=== PATIENT | female | born 1995 | race Caucasian/White ===

== ENCOUNTER 2022-04-17 00:14 | Outpatient (CLI) | payer BC, SELFPAY ==
[2022-04-17 00:29] VITALS: PULSE 107; O2SAT 98
[2022-04-17 00:33] VITALS: BP 114/70; PULSE 95
[2022-04-17 00:34] VITALS: RESP 16; TEMP 36.9
--- NOTE | 2022-04-17 06:44 | PC.OBNST ---
NST Note NST Note Start: 04/17/22 00:30 Freq: ONCE Status: Active Protocol: Document 04/17/22 06:40 AVL (Rec: 04/17/22 06:42 AVL [id number]) NST Note 1 Para (# of births) 0 EDC 05/16/22 Gestational Age In Weeks & Days 35 Weeks & 6 Days Patient Presented with Complaint(s) of Decreased movement Other Complaints While on the unit patient had an increase in contractions Reactive Yes Appropriate for Gestational Age Yes YAMILE Varner RN Date 04/17/22 Reactive Yes Appropriate for Gestational Age Yes YAMILE Brown RNC Date 04/17/22 OB NST charge Yes Complete NST Note via Write Note Yes The provider's electronic signature indicates the NST is reactive/appropriate for gestational age. *Note to provider: If an addendum is required, open the patient's chart and click on the note under the Nurse/Allied Health tab.
== END 2022-04-17 03:29 | disposition home or self-care (01) ==
LOC: OB OUT 00:15 → OB 00:16
PROVIDERS: PCP Family Medicine; Visit Provider Family Medicine
DX: O36.8130 Decreased fetal movements, third trimester, not applicable or unspecified (principal); Z3A.35 35 weeks gestation of pregnancy
CPT/HCPCS: 59025; 99213

== ENCOUNTER 2022-05-15 01:26 | Inpatient (IN) | payer BC, SELFPAY ==
[2022-05-15] VITALS (141 sets, daily range): BP systolic 89–143; BP diastolic 52–77; PULSE 66–172; RESP 18; TEMP 36.3–37.1; O2SAT 94–100
[2022-05-15 02:52] LABS: SARS PCR* Negative SARS-CoV-2 (Negative)
[2022-05-15] MEDS: SODIUM CHLORIDE 0.9 % (FLUSH) 10 ML SYRINGE IVF (04:07)
[2022-05-15] MEDS: LACTATED RINGERS 1000 ML 1,000 ML 1200 ML IV ×2 (04:07→05:22)
[2022-05-15] MEDS: LIDOCAINE 2% (PF) 5 ML VIAL EPIDURAL (04:16)
[2022-05-15] MEDS: ROPIVACAINE 0.2% 100 ml 100 ML 12 MG EPIDURAL ×2 (04:35→12:00)
[2022-05-15] MEDS: fentaNYL 250 MCG/5 ML inj 100 MCG EPIDURAL (04:40)
--- NOTE | 2022-05-15 04:50 | PM.ANBPRC ---
PFSH PFSH Social History Smoking Status: Never smoker Meds Home Medications and Allergies Allergies Allergy/AdvReac Type Severity Reaction Status Date / Time No Known Drug Allergies Allergy Verified 05/15/22 01:54 Results Labs Labs: Laboratory Results - last 24 hr 05/15/22 02:08 SARS-CoV-2 (PCR) Negative SARS-CoV-2 Vital Signs Vital Signs: Last Vital Signs Pulse 86 05/15/22 04:48 BP 122/61 05/15/22 04:48 Pulse Ox 98 05/15/22 04:47 Anesthesia Procedures Epidural Insertion Patient Location: OB Start Time: 04:00 Stop Time: 05:00 Start Date: 05/15/22 Stop Date: 05/15/22 Reason for Block: primary anesthetic Patient Position: sitting Performed By: Gareth Cook Preanesthetic Checklist: IV checked, risks and benefits discussed, surgical consent, monitors and equipment checked, pre-op evaluation, timeout performed and anesthesia consent Prep: chlorhexidine gluconate Monitoring: blood pressure monitoring, groundwater monitoring technician, continuous pulse oximetry and heart rate Approach: midline Vertebral Space: lumbar (1-5) Needle Type: Tuohy needle Injection Technique: continuous catheter Needle gauge: 17 Needle Length (cm): 10 cm Needle Insertion Depth (cm): 6 Catheter Gauge: 19 Catheter Type: multi-orifice Catheter at skin depth (cm): 12 Test Dose Result: negative and lidocaine 1.5% with epinephrine 1 to 200,000 Events: other
[2022-05-15] MEDS: PHENYLEPHRINE 100 MCG/ML SYRINGE IVP ×5 (05:19→06:52)
[2022-05-15] MEDS: ePHEDrine sulfate 5 MG/ML inj 10 MG IVP ×2 (06:04→06:13)
[2022-05-15] MEDS: LACTATED RINGERS 1000 ML 1,000 ML 125 ML IV (07:33)
--- NOTE | 2022-05-15 08:14 | P.OBHP_ITS ---
OB - H&P: HPI Labor/Induction History of Present Illness Date Seen: 05/15/22 Chief Complaint: Leaking fluid Chief complaint: Maternity Narrative: Ashlee is a 26 year old 1 para 0 at 39 weeks, 6 days gestation by LMP and 1st trimester ultrasound, who presents with spontaneous gush of clear fluid starting at 0030 today. She was having some contractions beforehand but these became much more pronounced and frequent about an hour after her water broke. She has been feeling normal movement. No bleeding. No recent illness. History of Present Dating criteria: based on LMP care: good care Ultrasounds: normal 1st trimester US and normal mid trimester US Medical complications: none Labs Blood type: O (+) positive Rubella: nonimmune RPR/VDLR: nonreactive GBS status: negative HBsAG: negative Review of Systems Status of ROS: Reports: 6 or more systems reviewed and unremarkable except as noted in History and below Meds Home Medications and Allergies Allergies Allergy/AdvReac Type Severity Reaction Status Date / Time No Known Drug Allergies Allergy Verified 05/15/22 01:54 OB - H&P: Exam Physical Exam: Vital signs: Temp Pulse BP Pulse Ox 97.8 F 89 111/57 L 100 05/15/22 05:43 05/15/22 08:10 05/15/22 08:10 05/15/22 08:03 Constitutional: Constitutional: no acute distress Routine HEENT Exam: Eye: Present normal appearance ENT: Present mucous membranes moist Routine Respiratory Exam: Respiratory: Present CTA bilaterally Routine Cardiovascular Exam: Cardiovascular: RRR, S1 and S2 Detailed Labor and Delivery Exam: Patient Gravid: yes Dilation (cm): 3 Effacement (%): 80 (per RN) Contraction frequency (min): 3 Tachysystole: No Comments: Exam per RN. FHT is category 1. Fetus (Single): Amniotic Membrane Status: SROM Amniotic Membrane Fluid Description: Clear Heart Rate Baseline: 150 Monitor Accelerations: Present Monitor Decelerations: None Longterm Variability: Moderate (6-25) Routine Extremities Exam: Extremities: Absent calf tenderness or pedal edema Routine Neurological Exam: Present alert and oriented X3 OB - Problem Based A/P Additional Plan (1) SROM (spontaneous rupture of membranes): Status: Acute Plan She did get phenylephrine and ephedrine after her epidural for hypotension. There was some tachycardia after this but heart tracing continued to be reassuring. She has now been ruptured for over 8 hours. She has made minimal change from admission. She is now 3 when she was 275 on admission. We discussed options include watchful waiting but we discussed increased risk of ROM > 18 hours with that plan as she has had minimal change so far. We elected to proceed with oral cytotec for cervical ripening per protocol.
[2022-05-15] MEDS: miSOPROStoL 25 MCG/0.25 TABLET PO (09:16)
[2022-05-15] MEDS: OXYTOCIN 30 unit/500 ML in NS 30 UNIT/500 ML BAG 300 UNIT IVPB (15:00)
--- NOTE | 2022-05-15 15:38 | PM.OBPRCVD ---
Procedure Delivery date: 05/15/22 Procedure Done: Global Procedure Details: G1 P now 1 at 39.6 weeks gestation admitted after having srom at 0025 on 05/15/22 Initially seen and H and P done by Dr Mcarthur. She did not make significant cervical change and was given 1 dose of Cytotec and progressed to 8 cm History: regular uncomplicated care. Group B strep Neg. O positive, Rubella negative Hep B, Hep C HIV and Syphilis negative Labor began at 1300 on 05/15/22 SROM with clear fluid at 0025 on 05/15/22 Mom was Complete at 1408 on 05/15/22. Dr Mcarthur ruptured forebag with clear fluid noted Started pushing at 1414 on 05/15/22 End of second state baby had a prolonged deceleration down to the 60's with some response to maternal postitional changes. But was recurrent and persistent. Vacuum applied and Dr Gloria was asked to present in room and Dr Mcarthur in room for baby. With assistance of vacuum baby was brought down. As baby crowned vacuum popped off x 1 and was reapplied. With contraction pop off #2. Good progress obtained with each contraction and pull with vacuum. Midline episiotomy was preformed. heart tones improved into the 140's - 150's and vacuum was not replied and she successfully delivered. Live born female infant delivered in vertex position [id number] on 05/15/22. Thick meconium was noted as shoulders and body delivered. spontaneously cried and placed on Mom abdomen. Mouth and nares suctioned after delivery. Delayed 3 vessel cord doubly clamped and cut after delivery. Placenta delivered complete at 1500 on 05/15/22 Perineum repaired with 3-O Vicryl in usual fashion. Good anatomical resortation was obtained Cervix examined and no clots found QBL 100 cc Pitocin given after delivery of
[2022-05-15] MEDS: ACETAMINOPHEN 500 MG TABLET 1000 MG PO (18:29)
[2022-05-15] MEDS: IBUPROFEN 600 MG TABLET PO (22:19)
[2022-05-16 00:11] VITALS: BP 105/64; PULSE 90; RESP 16; TEMP 36.6; O2SAT 97
[2022-05-16] MEDS: ACETAMINOPHEN 500 MG TABLET 1000 MG PO (00:19)
[2022-05-16 04:25] VITALS: BP 101/52; PULSE 82; RESP 16; TEMP 36.6; O2SAT 97
[2022-05-16 05:12] VITALS: TEMP 36.5
[2022-05-16] MEDS: IBUPROFEN 600 MG TABLET PO ×2 (05:12→11:43)
--- NOTE | 2022-05-16 07:00 | P.NBDS_ITS ---
Hospital Course Delivery Time: 14:57 Delivery Date: 05/15/22 Weeks Gestation At Delivery (32.0 - 42.0): 39.6 Gender: Female Medications Medications Medications: Active Medications Generic Name Dose Route Start Last Admin Trade Name Nikolai PRN Reason Stop Dose Admin Acetaminophen 1,000 mg 05/15/22 22:12 05/16/22 00:19 Acetaminophen 500 Mg Tablet PO 1,000 mg Q6H PRN Administration Calcium Carbonate 1,000 - 2,000 mg 05/15/22 22:12 Calcium Carbonate 500 Mg Chew PO Q2H PRN Docusate Sodium 100 mg 05/16/22 09:00 Docusate Sodium 100 Mg Capsule PO DAILY DANDRE Ibuprofen 600 mg 05/15/22 22:12 05/16/22 05:12 Ibuprofen 600 Mg Tablet PO 600 mg Q6H PRN Administration Lanolin 1 applic 05/15/22 22:12 Lanolin Cream TOPICAL Q1H PRN Lidocaine/Aluminum/Magnesium/Simeth 30 ml 05/15/22 22:12 Mag Hydrox/Aluminum Hyd/Simeth 30 Ml Oral.Susp PO Q2H PRN Heartburn/Gastric distress Magnesium Hydroxide 30 ml 05/15/22 22:12 Magnesium Hydroxide 30 Ml Oral.Susp PO Q6H PRN Pramoxine HCl 1 applic 05/15/22 22:12 Pramoxine Hcl 1% Foam TOPICAL QID PRN Simethicone 80 - 160 mg 05/15/22 22:12 Simethicone 80 Mg Tab.Chew PO Q4H PRN gas Sodium Chloride 10 ml 05/15/22 01:31 05/15/22 04:07 Sodium Chloride 0.9 % (Flush) 10 Ml Syringe IVF 10 ml .FLUSH PRN Administration Discontinued Medications Generic Name Dose Route Start Last Admin Trade Name Nikolai PRN Reason Stop Dose Admin Acetaminophen 1,000 mg 05/15/22 01:31 05/15/22 18:29 Acetaminophen 500 Mg Tablet PO 1,000 mg Q6H PRN Administration pain/fever Calcium Carbonate 1,000 - 2,000 mg 05/15/22 01:31 Calcium Carbonate 500 Mg Chew PO Q2H PRN Ephedrine Sulfate Confirm 05/15/22 04:02 Ephedrine Sulfate 5 Mg/Ml Inj Administered 05/15/22 04:03 Dose 25 mg IVP .STK-MED ONE Ephedrine Sulfate 10 mg 05/15/22 04:16 05/15/22 06:13 Ephedrine Sulfate 5 Mg/Ml Inj IVP 10 mg Q5M PRN Administration Fentanyl 100 mcg 05/15/22 04:30 05/15/22 04:40 Fentanyl 250 Mcg/5 Ml Inj EPIDURAL 100 mcg ONCE DANDRE Administration Fentanyl Confirm 05/15/22 04:17 Fentanyl 100 Mcg/2 Ml Inj Administered 05/15/22 04:18 Dose 100 mcg .ROUTE .STK-MED ONE Fentanyl Citrate 50 - 100 mcg 05/15/22 01:31 Fentanyl Citrate 50 Mcg/Ml 1 Ml Vial IVP Q30M PRN Oxytocin 30 unit in 500 mls @ 300 mls/hr 05/15/22 01:45 05/15/22 16:45 Oxytocin 30 Unit/500 Ml In Ns IVPB Infused CONT DANDRE Infusion Lactated Ringer's 1,000 mls @ 125 mls/hr 05/15/22 02:00 05/15/22 14:57 Lactated Ringers 1000 Ml IV Infused .Q8H DANDRE Infusion Ropivacaine Confirm 05/15/22 04:01 Ropivacaine 0.2% 100 Ml Administered 05/15/22 04:02 Dose 100 mls @ as directed .ROUTE .STK-MED ONE Ropivacaine 100 mls @ 12 mls/hr 05/15/22 04:30 05/15/22 15:30 Ropivacaine 0.2% 100 Ml EPIDURAL Infused CONT DANDRE Infusion Ibuprofen Confirm 05/15/22 22:17 Ibuprofen 600 Mg Tablet Administered 05/15/22 22:18 Dose 600 mg PO .STK-MED ONE Lidocaine HCl 20 ml 05/15/22 01:31 Lidocaine 1% Mdv INJECTION ONCE PRN vaginal lacerations Lidocaine HCl Confirm 05/15/22 04:01 Lidocaine 2% (Pf) 5 Ml Vial Administered 05/15/22 04:02 Dose 5 ml .ROUTE .STK-MED ONE Lidocaine HCl 5 ml 05/15/22 04:16 05/15/22 04:16 Lidocaine 2% (Pf) 5 Ml Vial EPIDURAL 05/15/22 04:17 5 ml ONCE ONE Administration Lidocaine HCl Confirm 05/15/22 13:09 Lidocaine 2% (Pf) 5 Ml Vial Administered 05/15/22 13:10 Dose 5 ml .ROUTE .STK-MED ONE Lidocaine HCl Confirm 05/15/22 13:09 Lidocaine 2% (Pf) 5 Ml Vial Administered 05/15/22 13:10 Dose 5 ml .ROUTE .STK-MED ONE Lidocaine HCl Confirm 05/15/22 13:09 Lidocaine 2% (Pf) 5 Ml Vial Administered 05/15/22 13:10 Dose 5 ml .ROUTE .STK-MED ONE Lidocaine HCl Confirm 05/15/22 13:53 Lidocaine 1 % Pf 30 Ml Administered 05/15/22 13:54 Dose 30 ml .ROUTE .STK-MED ONE Magnesium Hydroxide 30 ml 05/15/22 01:31 Magnesium Hydroxide 30 Ml Oral.Susp PO Q6H PRN Constipation Measles/Mumps/Rubella Vaccine Live 1 each 05/15/22 10:33 Measles,Mumps,Rubella Vacc/Pf 1 Dose Inj SUBCUT 05/15/22 10:34 .ONCE ONE Misoprostol 25 mcg 05/15/22 09:30 05/15/22 19:25 Misoprostol 25 Mcg/0.25 Tablet PO 05/16/22 05:31 Not Given Q4H DANDRE Misoprostol Confirm 05/15/22 09:14 Misoprostol 25 Mcg/0.25 Tablet Administered 05/15/22 09:15 Dose 25 mcg .ROUTE .STK-MED ONE Misoprostol Confirm 05/15/22 13:53 Misoprostol 800 Mcg/4 Tablet Administered 05/15/22 13:54 Dose 40,000 mcg .ROUTE .STK-MED ONE Naloxone HCl 0.2 mg 05/15/22 04:16 Naloxone 0.4 Mg/Ml Inj IVP Q5M PRN Respiratory Depression Ondansetron HCl 4 mg 05/15/22 01:31 Ondansetron 2 Mg/Ml Inj IV Q4H PRN Nausea And Vomiting Oxytocin 10 unit 05/15/22 01:31 Oxytocin 10 Unit/Ml Inj IM ONCE PRN Phenylephrine HCl Confirm 05/15/22 04:02 Phenylephrine 100 Mcg/Ml Syringe Administered 05/15/22 04:03 Dose 1,000 mcg IVP .STK-MED ONE Phenylephrine HCl 50 - 100 mcg 05/15/22 04:16 05/15/22 06:52 Phenylephrine 100 Mcg/Ml Syringe IVP 100 mcg Q5M PRN Administration Simethicone 80 - 160 mg 05/15/22 01:31 Simethicone 80 Mg Tab.Chew PO Q4H PRN gas Terbutaline Sulfate 0.25 mg 05/15/22 01:31 Terbutaline 1 Mg/Ml Inj SUBCUT ONCE PRN Maternal Health Data Maternal Health : 1 Para: 1 care: good care Labs Maternal HIV Status: Negative Hepatitis B Surface Antigen: Negative Maternal Blood Type: O Maternal RH Factor: Positive Rubella Immune Status: Non-Immune Maternal Syphilis (RPR) Status: Negative 1 Minute Interval Heart rate: 100 bpm or Greater Respiratory effort: Slow Respiration/Weak Cry Muscle tone: Minimal Flexion/Extension Reflex response: Prompt Response Color: Bluish Hands or Feet total score: 7 5 Minute Interval Heart rate: 100 bpm or Greater Respiratory effort: Spontaneous/Strong Cry Muscle tone: Minimal Flexion/Extension Reflex response: Prompt Response Color: Bluish Hands or Feet total score: 8 NB Measurements Weight weight: 3.475 kg NB Screening Data Car Seat Challenge Respiratory Rate: 16 Pulse Rate: 99 CCHD Screen ? Citation [facility]-Congenital Heart Defects Information for Healthcare Providers https://www.cdc.gov/ncbddd/heartdefects/hcp.html, April 20, 2018 NB Vitals Data Weight/Weight Change Weight/Weight Change Raymond Weight 3.475 kg Recent Vital Signs Recent Vital Signs: Last Vital Signs Temp 97.7 F 05/16/22 05:12 Pulse 82 05/16/22 04:25 Resp 16 05/16/22 04:25 BP 101/52 L 05/16/22 04:25 Pulse Ox 97 05/16/22 04:25 O2 Del Method 05/16/22 04:25 NB Discharge Medications, Vaccines, Procedures Medications/Vaccines Administered: Active Medications Acetaminophen (Acetaminophen 500 Mg Tablet) 1,000 mg PO Q6H PRN Last Admin: 05/16/22 00:19 Dose: 1,000 mg Calcium Carbonate (Calcium Carbonate 500 Mg Chew) 1,000 - 2,000 mg PO Q2H PRN Docusate Sodium (Docusate Sodium 100 Mg Capsule) 100 mg PO DAILY DANDRE Ibuprofen (Ibuprofen 600 Mg Tablet) 600 mg PO Q6H PRN Last Admin: 05/16/22 05:12 Dose: 600 mg Lanolin (Lanolin Cream) 1 applic TOPICAL Q1H PRN Lidocaine/Aluminum/Magnesium/Simeth (Mag Hydrox/Aluminum Hyd/Simeth 30 Ml Oral.Susp) 30 ml PO Q2H PRN PRN Reason: Heartburn/Gastric distress Magnesium Hydroxide (Magnesium Hydroxide 30 Ml Oral.Susp) 30 ml PO Q6H PRN Pramoxine HCl (Pramoxine Hcl 1% Foam) 1 applic TOPICAL QID PRN Simethicone (Simethicone 80 Mg Tab.Chew) 80 - 160 mg PO Q4H PRN PRN Reason: gas Sodium Chloride (Sodium Chloride 0.9 % (Flush) 10 Ml Syringe) 10 ml IVF .FLUSH PRN Last Admin: 05/15/22 04:07 Dose: 10 ml Discharge Plan Discharge Date of Admission: 05/15/22 01:26 Attending Physician on Admission: Malgorzata Rutherford Primary Care Provider: Malgorzata Rutherford Follow Up Appointments: Malgorzata Rutherford MD [Primary Care Provider] - A/P Assessment and plan (1) SROM (spontaneous rupture of membranes): Status: Acute
--- NOTE | 2022-05-16 07:01 | P.DS_ITS ---
DS: Providers Provider Date Seen: 05/16/22 Date of admission: 05/15/22 01:26 Primary care physician: Malgorzata Rutherford MD Admitting Clinician: Malgorzata Rutherford MD Attending Physician on discharge: Malgorzata Rutherford MD DS: Diagnosis Discharge Diagnosis (1) Vaginal delivery: Status: Acute Exam Narrative: Exam Narrative: HEENT: Eyes: no lid swelling, scleral itcterus or redness Ears: Normal external ears Nose: No drainage breathing easily no increased work of breathing Abdomen: post Extremities: Trace swelling Skin: pink and warm Mental Status: normal Const: Vital Signs, click to edit/add: Vital Signs - 24 hr 05/15/22 07:03 05/15/22 07:08 05/15/22 07:13 Temperature Pulse Rate 83 Pulse Rate [Pulse Oximeter] Respiratory Rate Blood Pressure 97/55 L Blood Pressure [Ri ght Arm] Pulse Oximetry 100 99 100 Oxygen Delivery Me thod 05/15/22 07:18 05/15/22 07:19 05/15/22 07:23 Temperature Pulse Rate 81 Pulse Rate [Pulse Oximeter] Respiratory Rate Blood Pressure 103/57 L Blood Pressure [Ri ght Arm] Pulse Oximetry 100 99 Oxygen Delivery Me thod 05/15/22 07:28 05/15/22 07:33 05/15/22 07:38 Temperature Pulse Rate 88 85 Pulse Rate [Pulse Oximeter] Respiratory Rate Blood Pressure 102/58 L 102/59 L Blood Pressure [Ri ght Arm] Pulse Oximetry 100 99 98 Oxygen Delivery Me thod 05/15/22 07:43 05/15/22 07:48 05/15/22 07:49 Temperature Pulse Rate 117 H Pulse Rate [Pulse Oximeter] Respiratory Rate Blood Pressure 100/54 L Blood Pressure [Ri ght Arm] Pulse Oximetry 99 98 Oxygen Delivery Me thod 05/15/22 07:53 05/15/22 07:58 05/15/22 08:03 Temperature Pulse Rate 97 Pulse Rate [Pulse Oximeter] Respiratory Rate Blood Pressure 118/69 Blood Pressure [Ri ght Arm] Pulse Oximetry 99 98 100 Oxygen Delivery Me thod 05/15/22 08:10 05/15/22 08:17 05/15/22 08:20 Temperature Pulse Rate 89 98 105 H Pulse Rate [Pulse Oximeter] Respiratory Rate Blood Pressure 111/57 L 100/55 L 104/56 L Blood Pressure [Ri ght Arm] Pulse Oximetry Oxygen Delivery Me thod 05/15/22 08:28 05/15/22 08:38 05/15/22 08:48 Temperature Pulse Rate 85 104 H 89 Pulse Rate [Pulse Oximeter] Respiratory Rate Blood Pressure 103/60 108/62 104/58 L Blood Pressure [Ri ght Arm] Pulse Oximetry Oxygen Delivery Me thod 05/15/22 08:59 05/15/22 09:09 05/15/22 09:18 Temperature Pulse Rate 83 83 98 Pulse Rate [Pulse Oximeter] Respiratory Rate Blood Pressure 116/59 L 99/58 L 90/53 L Blood Pressure [Ri ght Arm] Pulse Oximetry Oxygen Delivery Me thod 05/15/22 09:29 05/15/22 09:38 05/15/22 09:49 Temperature Pulse Rate 89 93 90 Pulse Rate [Pulse Oximeter] Respiratory Rate Blood Pressure 110/60 95/54 L 98/57 L Blood Pressure [Ri ght Arm] Pulse Oximetry Oxygen Delivery Wy thod 05/15/22 09:58 05/15/22 10:09 05/15/22 10:19 Temperature Pulse Rate 88 86 85 Pulse Rate [Pulse Oximeter] Respiratory Rate Blood Pressure 92/53 L 99/58 L 107/58 L Blood Pressure [Ri ght Arm] Pulse Oximetry Oxygen Delivery Wy thod 05/15/22 10:29 05/15/22 10:39 05/15/22 10:48 Temperature Pulse Rate 83 85 84 Pulse Rate [Pulse Oximeter] Respiratory Rate Blood Pressure 100/57 L 92/54 L 98/57 L Blood Pressure [Ri ght Arm] Pulse Oximetry Oxygen Delivery Me thod 05/15/22 11:09 05/15/22 11:10 05/15/22 11:18 Temperature Pulse Rate 90 83 91 Pulse Rate [Pulse Oximeter] Respiratory Rate Blood Pressure 103/54 L 94/52 L 98/54 L Blood Pressure [Ri ght Arm] Pulse Oximetry Oxygen Delivery Me thod 05/15/22 11:28 05/15/22 11:59 05/15/22 12:10 Temperature Pulse Rate 86 83 79 Pulse Rate [Pulse Oximeter] Respiratory Rate Blood Pressure 99/57 L 102/55 L 100/55 L Blood Pressure [Ri ght Arm] Pulse Oximetry Oxygen Delivery Me thod 05/15/22 12:18 05/15/22 12:22 05/15/22 12:24 Temperature Pulse Rate 88 92 82 Pulse Rate [Pulse Oximeter] Respiratory Rate Blood Pressure 97/55 L 97/57 L 95/52 L Blood Pressure [Ri ght Arm] Pulse Oximetry Oxygen Delivery Me thod 05/15/22 12:28 05/15/22 12:30 05/15/22 12:34 Temperature Pulse Rate 84 85 86 Pulse Rate [Pulse Oximeter] Respiratory Rate Blood Pressure 105/57 L 102/58 L 115/57 L Blood Pressure [Ri ght Arm] Pulse Oximetry Oxygen Delivery Me thod 05/15/22 12:45 05/15/22 13:03 05/15/22 13:19 Temperature Pulse Rate 82 82 84 Pulse Rate [Pulse Oximeter] Respiratory Rate Blood Pressure 99/57 L 101/55 L 102/53 L Blood Pressure [Ri ght Arm] Pulse Oximetry Oxygen Delivery Me thod 05/15/22 13:24 05/15/22 14:31 05/15/22 14:36 Temperature Pulse Rate 92 Pulse Rate [Pulse Oximeter] Respiratory Rate Blood Pressure 103/55 L Blood Pressure [Ri ght Arm] Pulse Oximetry 100 100 Oxygen Delivery Me thod 05/15/22 14:41 05/15/22 14:46 05/15/22 14:48 Temperature Pulse Rate 109 H Pulse Rate [Pulse Oximeter] Respiratory Rate Blood Pressure 127/64 Blood Pressure [Ri ght Arm] Pulse Oximetry 100 99 Oxygen Delivery Me thod 05/15/22 14:51 05/15/22 14:56 05/15/22 15:02 Temperature Pulse Rate 99 Pulse Rate [Pulse Oximeter] Respiratory Rate Blood Pressure 123/58 L Blood Pressure [Ri ght Arm] Pulse Oximetry 100 100 Oxygen Delivery Me thod 05/15/22 15:18 05/15/22 15:33 05/15/22 15:47 Temperature Pulse Rate 87 81 76 Pulse Rate [Pulse Oximeter] Respiratory Rate Blood Pressure 89/67 L 114/67 118/67 Blood Pressure [Ri ght Arm] Pulse Oximetry Oxygen Delivery Me thod 05/15/22 16:02 05/15/22 16:17 05/15/22 16:32 Temperature Pulse Rate 78 78 83 Pulse Rate [Pulse Oximeter] Respiratory Rate Blood Pressure 119/65 113/62 121/67 Blood Pressure [Ri ght Arm] Pulse Oximetry Oxygen Delivery Me thod 05/15/22 16:47 05/15/22 17:42 05/15/22 18:13 Temperature Pulse Rate 94 80 104 H Pulse Rate [Pulse Oximeter] Respiratory Rate Blood Pressure 117/69 111/59 L 109/61 Blood Pressure [Ri ght Arm] Pulse Oximetry Oxygen Delivery Me thod 05/15/22 18:34 05/15/22 19:35 05/15/22 07:30 Temperature 97.4 F L Pulse Rate 93 99 Pulse Rate [Pulse Oximeter] Respiratory Rate Blood Pressure 110/63 120/67 Blood Pressure [Ri ght Arm] Pulse Oximetry Oxygen Delivery Me thod 05/15/22 08:36 05/15/22 09:31 05/15/22 10:25 Temperature 98.2 F 98.4 F 98.8 F Pulse Rate Pulse Rate [Pulse Oximeter] Respiratory Rate Blood Pressure Blood Pressure [Ri ght Arm] Pulse Oximetry Oxygen Delivery Me thod 05/15/22 12:30 05/15/22 11:45 05/15/22 16:47 Temperature 98.3 F 98.5 F 98.5 F Pulse Rate Pulse Rate [Pulse Oximeter] Respiratory Rate Blood Pressure Blood Pressure [Ri ght Arm] Pulse Oximetry Oxygen Delivery Me thod 05/15/22 18:29 05/15/22 13:30 05/15/22 19:30 Temperature 98.5 F 98.2 F 98.8 F Pulse Rate Pulse Rate [Pulse Oximeter] 98 Respiratory Rate 18 Blood Pressure Blood Pressure [Ri ght Arm] 120/67 Pulse Oximetry 98 Oxygen Delivery Me thod Room Air 05/16/22 00:11 05/16/22 05:12 05/16/22 04:25 Temperature 97.9 F 97.7 F 97.9 F Pulse Rate Pulse Rate [Pulse Oximeter] 90 82 Respiratory Rate 16 16 Blood Pressure Blood Pressure [Ri ght Arm] 105/64 101/52 L Pulse Oximetry 97 97 Oxygen Delivery Me thod Room Air Room Air OB - DS: Summary Hospital Course Hospital Course: The patient is a 26 year old G 1 P 1 at 39.6 weeks gestation that was admitted to the Center on 05/15/22 for SROM. She had vaginal delivery. She delivered a viable female . She is breast feeding. the patient has done well. Had SROM recieved 1 dose Cytotec and had vaginal delivery. bradycardia at end of second stage and vacuum applied to assist decent. Midline episiotomy with repair. Doing well post day #1. Interested in going home today if possible. Will assess as day progresses. Peripartum Data Infant delivery method: Vaginal Episiotomy description: Midline complications: none [place] Gender: Female Infant Discharge Plan: Home Time Spent with Patient Time attestation: Total time spent providing and/or coordinating discharge services: Discharge Plan Discharge Disposition: Home, Self-Care Date of Admission: 05/15/22 01:26 Attending Provider on Discharge: Malgorzata Rutherford Consulting Providers: Garrett Mcarthur Primary Care Provider: Malgorzata Rutherford Condition: Stable Anticipated Discharge Date/Time: 05/16/22 15:06 Discharge Medications: New acetaminophen 500 mg Tablet 1,000 mg PO Q6H PRNQty: 90 0RF docusate sodium 100 mg Capsule 100 mg PO DAILY Qty: 30 0RF ibuprofen 600 mg Tablet 600 mg PO Q6H PRNQty: 90 0RF Discharge Orders: Discharge Order (Routine); Ordered 05/16/22 Ordered By: Malgorzata Rutherford Patient Education: OB Vaginal/Breast Feeding Activity Level: Activity as Tolerated Discharge Diet: Regular Follow Up Appointments: Malgorzata Rutherford MD [Primary Care Provider] - (at 6 wks ) Forms: [employer] Info Instructions
[2022-05-16 07:42] LABS: Hemoglobin* 9.3 gm/dL (12.0-16.0)
[2022-05-16 07:57] VITALS: BP 100/65; PULSE 79; RESP 16; TEMP 36.4; O2SAT 97
[2022-05-16 13:00] VITALS: BP 109/76; PULSE 87; RESP 16; TEMP 36.6; O2SAT 98
[2022-05-16] MEDS: MEASLES,MUMPS,RUBELLA VACC/PF 1 DOSE INJ 1 EACH SUBCUT (17:39)
== END 2022-05-16 19:10 | disposition home or self-care (01) | DRG 560 ==
LOC: OB OUT 01:28 → OB 01:28
PROVIDERS: Admitting Provider Family Medicine; PCP Family Medicine; Visit Provider Family Medicine
DX: O76 Abnormality in fetal heart rate and rhythm complicating labor and delivery (principal); I95.89 Other hypotension; O77.0 Labor and delivery complicated by meconium in amniotic fluid; Z37.0 Single live birth; Z3A.39 39 weeks gestation of pregnancy
CPT/HCPCS: 01967; 36415; 59200; 85018; 87635; A9270; J2370; J2795; J3010; J7120

== ENCOUNTER 2025-01-27 17:05 | Outpatient (CLI) | payer SELFPAY ==
[2025-01-27 17:14] VITALS: BP 108/60; PULSE 82
[2025-01-27 17:28] VITALS: RESP 16; TEMP 36.7
[2025-01-27 18:06] LABS: Amnisure Rom* Negative
[2025-01-27 18:31] LABS: Appearance Urine Clear (Clear)
[2025-01-27 18:33] LABS: Trichomonas No Trichomonas Seen (None Seen)
[2025-01-27] MEDS: LACTATED RINGERS 1000 ML 1,000 ML IV (18:52)
--- NOTE | 2025-01-27 20:39 | PC.OBNST ---
NST Note NST Note Start: 01/27/25 17:16 Freq: ONCE Status: Active Protocol: Document 01/27/25 20:38 RUDY (Rec: 01/27/25 20:39 RUDY [id number]) NST Note 2 Para (# of births) 1 EDC 04/30/25 Gestational Age In 26 Weeks & 5 Days Weeks & Days Patient Presented Contractions/cramping with Complaint(s) of Reactive Yes Appropriate for Yes Gestational Age RN Christopher Yang RN Date 01/27/25 Reactive Yes Appropriate for Yes Gestational Age YAMILE Jensen MD Date 01/27/25 OB NST charge Yes Complete NST Note Yes via Write Note Patient diagnosed with B.V. and sent home with prescription for metronidazole. The provider's electronic signature indicates the NST is reactive/appropriate for gestational age. *Note to provider: If an addendum is required, open the patient's chart and click on the note under the Nurse/Allied Health tab.
== END 2025-01-27 20:35 | disposition home or self-care (01) ==
LOC: OB OUT 17:07 → OB 17:09
PROVIDERS: PCP Family Medicine; Visit Provider Family Medicine
DX: O47.1 False labor at or after 37 completed weeks of gestation (principal); Z3A.26 26 weeks gestation of pregnancy
CPT/HCPCS: 59025; 81003; 84112; 87210; G0463; A9270; J7120

== ENCOUNTER 2025-04-21 17:30 | Outpatient (CLI) | payer OTHER, SELFPAY ==
[2025-04-21 17:53] VITALS: BP 128/76; PULSE 88; RESP 16; TEMP 36.6
[2025-04-21 18:00] LABS: Amnisure Rom* Negative
--- NOTE | 2025-04-21 18:41 | PC.OBNST ---
NST Note NST Note Start: 04/21/25 17:44 Freq: ONCE Status: Active Protocol: Document 04/21/25 18:38 CWP (Rec: 04/21/25 18:41 CWP [id number]) NST Note 2 Para (# of births) 1 EDC 04/30/25 Gestational Age In 38 Weeks & 5 Days Weeks & Days Patient Presented Leaking fluid with Complaint(s) of Reactive Yes Appropriate for Yes Gestational Age YAMILE Upton RNC Date 04/21/25 Reactive Yes Appropriate for Yes Gestational Age YAMILE Watters MD Date 04/21/25 OB NST charge Yes Complete NST Note Yes via Write Note The provider's electronic signature indicates the NST is reactive/appropriate for gestational age. *Note to provider: If an addendum is required, open the patient's chart and click on the note under the Nurse/Allied Health tab.
[2025-04-21 18:52] LABS: Bacterial Vaginosis* Negative (Negative); Candida glab/krus NOT DETECTED (No Detected)
== END 2025-04-21 18:20 | disposition home or self-care (01) ==
LOC: OB OUT 17:31 → OB 17:33
PROVIDERS: PCP Family Medicine; Visit Provider Family Medicine
DX: O47.1 False labor at or after 37 completed weeks of gestation (principal); Z3A.38 38 weeks gestation of pregnancy
CPT/HCPCS: 59025; 81513; 84112; 87481; 87661; G0463